=== PATIENT | male | born 1965 | race Caucasian/White ===

== ENCOUNTER 2017-07-08 08:59 | Emergency (ER) | payer OTHER ==
[~2017-07-08] VITALS: Ht 190.5 cm; Wt 108.9 kg
[2017-07-08 09:01] VITALS: BP 156/91
--- NOTE | 2017-07-08 09:08 | NUR ---
[id number] FROM HOME FOR OD OF TRAZODONE AND TYLENOL W CODEINE-UNKNOWN AMT. NARCAN X 1GIVEN IN THE FIELD. PATIENT RECEIVED AWAKE AND ALERT, APPEARS IN NO APPARENT DISTRESS, SKIN IS WARM TO TOUCH AND NON DIAPHORETIC, AFEBRILE. PT DENIES TAKING TRAZADONE NOR TYLENOL. PER PT HE ONLY TOOK DIET PILLS. VSS,.
--- NOTE | 2017-07-08 09:16 | NUR ---
WEED CUTTER AT BEDSIDE FOR BLOOD DRAW.
[2017-07-08 09:25] LABS: BASOPHILS # (AUTO) 0.1 /CMM (0.0-0.2); BASOPHILS % (AUTO) 0.7 % (0.0-2.0); EOSINOPHILS # (AUTO) 0.3 /CMM (0.0-0.7); EOSINOPHILS % (AUTO) 2.7 % (0.0-6.0); HEMATOCRIT 47 % (39-51); HEMOGLOBIN 16.4 g/dL (13.5-17.5); LYMPHOCYTES # (AUTO) 1.8 /CMM (0.8-4.8); LYMPHOCYTES % (AUTO) 18.4 % (20.0-44.0); MEAN CORPUSCULAR HEMOGLOBIN 32 PG (26.0-33.0); MEAN CORPUSCULAR HGB CONC 35 g/dl (31.0-36.0); MEAN CORPUSCULAR VOLUME 92 fL (80-96); MONOCYTES # (AUTO) 0.4 /CMM (0.1-1.30); MONOCYTES % (AUTO) 4.2 % (2.0-12.0); PLATELET COUNT (AUTO) 287 /CMM (150-450); RDW COEFFICIENT OF VARIATION 13.5 (11.5-15.0); RED BLOOD CELL COUNT(AUTO) 5.14 MIL/uL (4.5-6.0); WHITE BLOOD COUNT (AUTO) 9.5 K/uL (4.3-11.0)
--- NOTE | 2017-07-08 09:35 | NUR ---
PATIENT STATING HE WANTS TO LEAVE AMA. AT BEDSIDE, ALSO WANTS TO LEAVE AMA. DR. LAUREN INFORMED AND AGREES TO LET PATIENT LEAVE AMA AFTER EXPLANATION OF RISKS. PATIENT SIGNED AMA FORM, LEFT WITH .
[2017-07-08 09:36] LABS: CALCIUM, SERUM 8.9 mg/dL (8.5-10.1); CARBON DIOXIDE 24 mmol/L (21-32); CHLORIDE 100 mmol/L (98-107); CREATININE 1.3 mg/dL (0.6-1.3); GLUCOSE 288 mg/dL (74-106); POTASSIUM 3.7 mmol/L (3.5-5.1); SODIUM SERUM 136 mmol/L (136-145); UREA NITROGEN, BLOOD 17 mg/dL (7-18)
[2017-07-08 09:42] LABS: ALANINE AMINOTRANSFERASE 36 U/L (12-78); ALBUMIN 4.1 g/dL (3.4-5.0); ALKALINE PHOSPHATASE 70 U/L (46-116); ASPARTATE AMINOTRANSFERASE 24 U/L (15-37); BILIRUBIN,DIRECT 0.2 mg/dL (0.0-0.2); BILIRUBIN,TOTAL 0.8 mg/dL (0.2-1.0); TOTAL PROTEIN, SERUM 7.6 g/dL (6.4-8.2)
[2017-07-08 09:45] LABS: SALICYLATE 1.7 mg/dL (2.8-20.0)
[2017-07-08 09:46] LABS: ACETAMINOPHEN 0 ug/ml (10-30); ALCOHOL, BLOOD < 3 mg/dL (0-0)
== END 2017-07-08 09:49 | disposition left against medical advice (07) ==
LOC: ER 09:01
DX: T43.211A Poisoning by selective serotonin and norepinephrine reuptake inhibitors, accidental (unintentional), initial encounter (principal); T40.2X1A Poisoning by other opioids, accidental (unintentional), initial encounter; Z53.20 Procedure and treatment not carried out because of patient's decision for unspecified reasons; Y92.89 Other specified places as the place of occurrence of the external cause
CPT/HCPCS: 36415; 80048-TC; 80076-TC; 85025-TC; A4606; G0480; Z7610